=== PATIENT | male | born 1975 | race Caucasian/White ===

== ENCOUNTER 2020-12-02 17:39 | Emergency (ER) | payer MEDICAID, OTHER ==
[~2020-12-02] VITALS: Ht 177.8 cm; Wt 86.0 kg
[2020-12-02 18:39] LABS: BASOPHILS % 0.3 % (0.0-2.0); EOSINOPHILS % 0.3 % (0.0-5.0); HEMATOCRIT. 38.3 % (42.0-52.0); HEMOGLOBIN. 12.5 g/dL (14.0-18.0); LYMPHOCYTES % 15.7 % (20.0-50.0); MEAN CORPUSCULAR HEMOGLOBIN 29.5 pg (28.0-32.0); MEAN CORPUSCULAR VOLUME 90.2 fL (80.0-94.0); MEAN PLATELET VOLUME 8.2 fl (7.4-10.4); NEUTROPHILS % 80.7 % (40.0-76.0); PLATELET 259 x1000/uL (130-400); RED BLOOD CELL COUNT 4.24 mill/uL (4.7-6.1); RED CELL DISTRIBUTION WIDTH 14.4 % (11.6-14.6)
[2020-12-02 18:47] LABS: CHLORIDE 111 mEq/L (98-107)
[2020-12-02 18:55] LABS: CREATINE KINASE 170 IU/L (39-308)
[2020-12-02 19:26] LABS: ETHANOL BLOOD 317 mg/dL
[2020-12-02 23:08] LABS: CLARITY URINE CLEAR (CLEAR); COLOR URINE YELLOW (YELLOW); KETONES URINE NEGATIVE (NEGATIVE); LEUKOCYTE ESTERASE URINE NEGATIVE (NEGATIVE); NITRITE URINE NEGATIVE (NEGATIVE); OCCULT BLOOD URINE NEGATIVE (NEGATIVE); PROTEIN URINE NEGATIVE (NEGATIVE); SPECIFIC GRAVITY URINE 1.012 (1.005-1.030); UROBILINOGEN URINE 0.2 E.U./dL (0.2-1.0)
[2020-12-02 23:21] LABS: *AMPHETAMINES SCREEN URINE PRESUMTIVE POSITIVE (NEGATIVE); *BARBITURATES SCREEN URINE NEGATIVE (NEGATIVE); *BENZODIAZEPINES SCREEN URINE NEGATIVE (NEGATIVE); *COCAINE SCREEN URINE NEGATIVE (NEGATIVE); METHADONE URINE SCREEN NEGATIVE (NEGATIVE)
[2020-12-02 23:22] LABS: CANNABINOID URINE SCREEN NEGATIVE (NEGATIVE); OPIATES URINE SCREEN NEGATIVE (NEGATIVE); PHENCYCLIDINE URINE SCREEN NEGATIVE (NEGATIVE)
[2020-12-03 01:49] VITALS: BP 116/74
== END 2020-12-03 01:48 | disposition home or self-care (01) ==
LOC: ER 17:39
DX: R41.82 Altered mental status, unspecified (principal); F14.10 Cocaine abuse, uncomplicated; Z88.2 Allergy status to sulfonamides
CPT/HCPCS: 36415; 70450; 71045; 80053; 80305; 80307; 80320; 80329; 81003; 82140; 82550; 82962; 83605; 84443; 84484; 85025; 93005; 99285; Z7610; G0480

== ENCOUNTER 2020-12-03 02:38 | Emergency (ER) | payer MEDICAID ==
[~2020-12-03] VITALS: Ht 177.8 cm; Wt 90.0 kg
[2020-12-03] MEDS ORDERED: OLANZAPINE 10 MG/VIAL IM ONE ×2 (03:15→12:45)
[2020-12-03 03:37] LABS: BASOPHILS % 0.2 % (0.0-2.0); EOSINOPHILS % 1.4 % (0.0-5.0); HEMATOCRIT. 35.2 % (42.0-52.0); HEMOGLOBIN. 11.9 g/dL (14.0-18.0); LYMPHOCYTES % 38.3 % (20.0-50.0); MEAN CORPUSCULAR VOLUME 89.1 fL (80.0-94.0); MONOCYTES % 7.7 % (2.0-8.0); NEUTROPHILS % 52.4 % (40.0-76.0); PLATELET 251 x1000/uL (130-400); RED BLOOD CELL COUNT 3.96 mill/uL (4.7-6.1); RED CELL DISTRIBUTION WIDTH 14.1 % (11.6-14.6)
[2020-12-03 03:43] LABS: CHLORIDE 109 mEq/L (98-107)
[2020-12-03 03:47] LABS: ETHANOL BLOOD 102 mg/dL
[2020-12-03 06:24] LABS: CLARITY URINE CLEAR (CLEAR); COLOR URINE YELLOW (YELLOW); KETONES URINE TRACE (NEGATIVE); LEUKOCYTE ESTERASE URINE NEGATIVE (NEGATIVE); NITRITE URINE NEGATIVE (NEGATIVE); OCCULT BLOOD URINE TRACE (NEGATIVE); PROTEIN URINE NEGATIVE (NEGATIVE); SPECIFIC GRAVITY URINE 1.026 (1.005-1.030); UROBILINOGEN URINE 0.2 E.U./dL (0.2-1.0)
[2020-12-03 06:34] LABS: *BARBITURATES SCREEN URINE NEGATIVE (NEGATIVE); *BENZODIAZEPINES SCREEN URINE NEGATIVE (NEGATIVE)
[2020-12-03 06:35] LABS: *AMPHETAMINES SCREEN URINE PRESUMTIVE POSITIVE (NEGATIVE); *COCAINE SCREEN URINE NEGATIVE (NEGATIVE); CANNABINOID URINE SCREEN NEGATIVE (NEGATIVE); METHADONE URINE SCREEN NEGATIVE (NEGATIVE); OPIATES URINE SCREEN NEGATIVE (NEGATIVE); PHENCYCLIDINE URINE SCREEN NEGATIVE (NEGATIVE)
[2020-12-03] MEDS: HYDROXYZINE 25MG TABLET PO PRN ×3 (13:16→19:03)
[2020-12-03] MEDS ORDERED: ACETAMINOPHEN 325MG TABLET PO ONE (18:00)
[2020-12-04] MEDS ORDERED: OLANZAPINE 10 MG/VIAL IM ONE (08:30)
[2020-12-04] MEDS: HYDROXYZINE 25MG TABLET PO PRN ×2 (08:41→18:21)
[2020-12-05] MEDS ORDERED: ARIPIPRAZOLE 5MG TABLET PO SCH (08:00)
[2020-12-05] MEDS ORDERED: VENLAFAXINE HCL 50MG TABLET PO SCH (09:00)
[2020-12-05 10:13] VITALS: BP 131/74
[2020-12-05] MEDS ORDERED: MIRTAZAPINE 30MG TABLET PO SCH (21:00)
== END 2020-12-05 10:23 | disposition home or self-care (01) ==
LOC: ER 02:38
DX: R45.851 Suicidal ideations (principal); R44.0 Auditory hallucinations; R45.850 Homicidal ideations; F14.10 Cocaine abuse, uncomplicated; Z88.2 Allergy status to sulfonamides; Z20.822 Contact with and (suspected) exposure to COVID-19
CPT/HCPCS: 36415; 80053; 80305; 80320; 81003; 85025; 87426; 93005; 96372; 99285; J3490; Z7610; G0480

== ENCOUNTER 2020-12-28 21:01 | Emergency (ER) | payer MEDICAID ==
[~2020-12-28] VITALS: Ht 180.3 cm; Wt 73.0 kg
[2020-12-28 22:18] LABS: CLARITY URINE CLEAR (CLEAR); COLOR URINE DARK YELLOW (YELLOW); KETONES URINE TRACE (NEGATIVE); LEUKOCYTE ESTERASE URINE NEGATIVE (NEGATIVE); NITRITE URINE NEGATIVE (NEGATIVE); OCCULT BLOOD URINE NEGATIVE (NEGATIVE); PH URINE 5.5 (4.5-8.0); PROTEIN URINE 1+ (NEGATIVE); SPECIFIC GRAVITY URINE 1.027 (1.005-1.030); UROBILINOGEN URINE 0.2 E.U./dL (0.2-1.0)
[2020-12-28 22:31] LABS: *AMPHETAMINES SCREEN URINE PRESUMTIVE POSITIVE (NEGATIVE); *BARBITURATES SCREEN URINE NEGATIVE (NEGATIVE); *BENZODIAZEPINES SCREEN URINE NEGATIVE (NEGATIVE); *COCAINE SCREEN URINE NEGATIVE (NEGATIVE); CANNABINOID URINE SCREEN NEGATIVE (NEGATIVE)
[2020-12-28 22:32] LABS: METHADONE URINE SCREEN NEGATIVE (NEGATIVE); OPIATES URINE SCREEN NEGATIVE (NEGATIVE)
[2020-12-28 22:34] LABS: PHENCYCLIDINE URINE SCREEN NEGATIVE (NEGATIVE)
[2020-12-28 23:34] LABS: ETHANOL BLOOD 54 mg/dL
[2020-12-29 00:52] LABS: BASOPHILS % 0.3 % (0.0-2.0); HEMOGLOBIN. 12.9 g/dL (14.0-18.0); LYMPHOCYTES % 41.3 % (20.0-50.0); MEAN CORPUSCULAR HEMOGLOBIN 29.8 pg (28.0-32.0); MEAN CORPUSCULAR VOLUME 89.9 fL (80.0-94.0); MEAN PLATELET VOLUME 8.4 fl (7.4-10.4); MONOCYTES % 6.3 % (2.0-8.0); NEUTROPHILS % 49.1 % (40.0-76.0); PLATELET 221 x1000/uL (130-400); RED BLOOD CELL COUNT 4.34 mill/uL (4.7-6.1)
[2020-12-29 00:57] LABS: CHLORIDE 111 mEq/L (98-107)
[2020-12-29 02:50] VITALS: BP 129/82
== END 2020-12-29 08:16 | disposition home or self-care (01) ==
LOC: ER 21:01
DX: F19.10 Other psychoactive substance abuse, uncomplicated (principal); F17.200 Nicotine dependence, unspecified, uncomplicated; F15.10 Other stimulant abuse, uncomplicated; I10 Essential (primary) hypertension; Z13.9 Encounter for screening, unspecified; Z88.2 Allergy status to sulfonamides; Z59.0 Homelessness; Z86.59 Personal history of other mental and behavioral disorders
CPT/HCPCS: 36415; 71045; 80053; 80305; 80307; 80320; 80329; 81003; 82140; 83605; 84443; 85025; 99284; G0480

== ENCOUNTER 2021-01-20 16:48 | Emergency (ER) | payer MEDICAID ==
[~2021-01-20] VITALS: Ht 172.7 cm; Wt 88.0 kg
[2021-01-20] MEDS ORDERED: OLANZAPINE 10 MG/VIAL IM ONE (17:00)
[2021-01-20] MEDS ORDERED: LORAZEPAM 2MG/ML CPJ IM ONE (17:00)
[2021-01-20 17:30] LABS: BASOPHILS % 0.3 % (0.0-2.0); EOSINOPHILS % 2.8 % (0.0-5.0); HEMATOCRIT. 38.2 % (42.0-52.0); LYMPHOCYTES % 27.7 % (20.0-50.0); MEAN CORPUSCULAR HEMOGLOBIN 30.6 pg (28.0-32.0); MEAN CORPUSCULAR VOLUME 90.4 fL (80.0-94.0); MEAN PLATELET VOLUME 8.2 fl (7.4-10.4); MONOCYTES % 6.8 % (2.0-8.0); NEUTROPHILS % 62.4 % (40.0-76.0); PLATELET 272 x1000/uL (130-400); RED BLOOD CELL COUNT 4.23 mill/uL (4.7-6.1); RED CELL DISTRIBUTION WIDTH 13.9 % (11.6-14.6)
[2021-01-20 17:36] LABS: CHLORIDE 113 mEq/L (98-107)
[2021-01-20 17:39] LABS: ETHANOL BLOOD 200 mg/dL
[2021-01-20 23:10] LABS: CLARITY URINE CLEAR (CLEAR); COLOR URINE YELLOW (YELLOW); KETONES URINE NEGATIVE (NEGATIVE); LEUKOCYTE ESTERASE URINE NEGATIVE (NEGATIVE); NITRITE URINE NEGATIVE (NEGATIVE); OCCULT BLOOD URINE TRACE (NEGATIVE); PROTEIN URINE NEGATIVE (NEGATIVE); SPECIFIC GRAVITY URINE 1.019 (1.005-1.030)
[2021-01-20 23:30] LABS: *AMPHETAMINES SCREEN URINE NEGATIVE (NEGATIVE); *BARBITURATES SCREEN URINE NEGATIVE (NEGATIVE); *BENZODIAZEPINES SCREEN URINE NEGATIVE (NEGATIVE); *COCAINE SCREEN URINE NEGATIVE (NEGATIVE); METHADONE URINE SCREEN NEGATIVE (NEGATIVE); OPIATES URINE SCREEN NEGATIVE (NEGATIVE)
[2021-01-20 23:31] LABS: CANNABINOID URINE SCREEN NEGATIVE (NEGATIVE); PHENCYCLIDINE URINE SCREEN NEGATIVE (NEGATIVE)
[2021-01-21] MEDS ORDERED: QUETIAPINE FUMARATE 50MG TABLET PO SCH
[2021-01-21] MEDS ORDERED: LORAZEPAM 2MG/ML CPJ IM ONE (01:00)
[2021-01-21 05:00] VITALS: BP 121/69
== END 2021-01-21 05:20 | disposition home or self-care (01) ==
LOC: ER 16:48
DX: S62.611A Displaced fracture of proximal phalanx of left index finger, initial encounter for closed fracture (principal); S62.603A Fracture of unspecified phalanx of left middle finger, initial encounter for closed fracture; F10.129 Alcohol abuse with intoxication, unspecified; F31.9 Bipolar disorder, unspecified; I10 Essential (primary) hypertension; F20.9 Schizophrenia, unspecified; Z88.2 Allergy status to sulfonamides; F15.10 Other stimulant abuse, uncomplicated; R45.851 Suicidal ideations; W26.8XXA Contact with other sharp object(s), not elsewhere classified, initial encounter; Y93.89 Activity, other specified; Y92.89 Other specified places as the place of occurrence of the external cause; Y99.8 Other external cause status; Z20.822 Contact with and (suspected) exposure to COVID-19
CPT/HCPCS: 36415; 73130; 80053; 80305; 80307; 80320; 80329; 81003; 85025; 87426; 96372; 99285; J2060; J3490; Z7610; G0480

== ENCOUNTER 2021-02-09 04:55 | Emergency (ER) | payer MEDICAID ==
[~2021-02-09] VITALS: Ht 180.3 cm; Wt 82.0 kg
[2021-02-09 05:52] LABS: BASOPHILS % 0.3 % (0.0-2.0); EOSINOPHILS % 2.4 % (0.0-5.0); HEMATOCRIT. 40.8 % (42.0-52.0); HEMOGLOBIN. 13.4 g/dL (14.0-18.0); LYMPHOCYTES % 42.9 % (20.0-50.0); MEAN CORPUSCULAR HEMOGLOBIN 29.4 pg (28.0-32.0); MEAN CORPUSCULAR VOLUME 89.4 fL (80.0-94.0); MEAN PLATELET VOLUME 8.7 fl (7.4-10.4); NEUTROPHILS % 42.4 % (40.0-76.0); PLATELET 191 x1000/uL (130-400); RED BLOOD CELL COUNT 4.56 mill/uL (4.7-6.1); RED CELL DISTRIBUTION WIDTH 13.9 % (11.6-14.6)
[2021-02-09 06:00] LABS: CHLORIDE 111 mEq/L (98-107)
[2021-02-09 06:04] LABS: ETHANOL BLOOD 28 mg/dL
[2021-02-09] MEDS ORDERED: IBUPROFEN 600MG TABLET PO ONE (07:00)
[2021-02-09 08:51] LABS: CLARITY URINE CLOUDY (CLEAR); COLOR URINE YELLOW (YELLOW); KETONES URINE 1+ (NEGATIVE); LEUKOCYTE ESTERASE URINE 1+ (NEGATIVE); NITRITE URINE NEGATIVE (NEGATIVE); OCCULT BLOOD URINE NEGATIVE (NEGATIVE); PROTEIN URINE NEGATIVE (NEGATIVE)
[2021-02-09] MEDS ORDERED: ARIPIPRAZOLE 5MG TABLET PO SCH (09:00)
[2021-02-09 09:05] LABS: *BENZODIAZEPINES SCREEN URINE NEGATIVE (NEGATIVE); *COCAINE SCREEN URINE NEGATIVE (NEGATIVE); METHADONE URINE SCREEN NEGATIVE (NEGATIVE); OPIATES URINE SCREEN NEGATIVE (NEGATIVE); PHENCYCLIDINE URINE SCREEN NEGATIVE (NEGATIVE)
[2021-02-09 09:06] LABS: *BARBITURATES SCREEN URINE NEGATIVE (NEGATIVE); CANNABINOID URINE SCREEN NEGATIVE (NEGATIVE)
[2021-02-09 09:15] LABS: *AMPHETAMINES SCREEN URINE PRESUMTIVE POSITIVE (NEGATIVE)
[2021-02-09] MEDS: BUSPIRONE HCL 10MG TABLET PO SCH ×2 (09:57→19:45)
[2021-02-09] MEDS ORDERED: LORAZEPAM 1MG TABLET PO NR (15:30)
[2021-02-09] MEDS ORDERED: MIRTAZAPINE 15MG TABLET PO SCH (21:00)
[2021-02-10 07:05] VITALS: BP 131/74
== END 2021-02-10 10:00 | disposition home or self-care (01) ==
LOC: ER 04:55
DX: F23 Brief psychotic disorder (principal); R45.851 Suicidal ideations; F15.10 Other stimulant abuse, uncomplicated; I10 Essential (primary) hypertension; F41.9 Anxiety disorder, unspecified; Z76.5 Malingerer [conscious simulation]; Z20.822 Contact with and (suspected) exposure to COVID-19; Z87.828 Personal history of other (healed) physical injury and trauma; Z98.890 Other specified postprocedural states; Z88.2 Allergy status to sulfonamides; Z75.1 Person awaiting admission to adequate facility elsewhere
CPT/HCPCS: 36415; 73130; 80053; 80305; 80307; 80320; 80329; 81003; 85025; 87426; 99285; G0480

== ENCOUNTER 2021-02-12 20:21 | Emergency (ER) | payer MEDICAID ==
[~2021-02-12] VITALS: Ht 172.7 cm; Wt 82.0 kg
[2021-02-12 20:23] VITALS: BP 130/100
== END 2021-02-12 21:53 | disposition left against medical advice (07) ==
LOC: ER 20:21
DX: Z53.21 Procedure and treatment not carried out due to patient leaving prior to being seen by health care provider (principal); R07.89 Other chest pain; R45.1 Restlessness and agitation; F10.129 Alcohol abuse with intoxication, unspecified; Y90.9 Presence of alcohol in blood, level not specified; F12.90 Cannabis use, unspecified, uncomplicated

== ENCOUNTER 2021-04-26 13:53 | Emergency (ER) | payer MEDICAID, OTHER ==
[~2021-04-26] VITALS: Ht 175.3 cm; Wt 84.0 kg
[2021-04-26] MEDS ORDERED: NITROGLYCERIN 0.4MG TABLET SL SL ONE (15:45)
[2021-04-26 15:56] LABS: BASOPHILS % 0.2 % (0.0-2.0); EOSINOPHILS % 4.6 % (0.0-5.0); HEMATOCRIT. 37.8 % (42.0-52.0); HEMOGLOBIN. 12.8 g/dL (14.0-18.0); LYMPHOCYTES % 27.6 % (20.0-50.0); MEAN CORPUSCULAR HEMOGLOBIN 30.2 pg (28.0-32.0); MEAN CORPUSCULAR VOLUME 88.9 fL (80.0-94.0); MEAN PLATELET VOLUME 8.2 fl (7.4-10.4); MONOCYTES % 7.6 % (2.0-8.0); PLATELET 208 x1000/uL (130-400); RED BLOOD CELL COUNT 4.24 mill/uL (4.7-6.1); RED CELL DISTRIBUTION WIDTH 15.4 % (11.6-14.6)
[2021-04-26 16:00] LABS: CHLORIDE 106 mEq/L (98-107)
[2021-04-26 18:53] VITALS: BP 128/74
== END 2021-04-26 18:56 | disposition home or self-care (01) ==
LOC: ER 13:53
DX: R07.89 Other chest pain (principal); I10 Essential (primary) hypertension; I25.2 Old myocardial infarction; F15.10 Other stimulant abuse, uncomplicated; F12.10 Cannabis abuse, uncomplicated; Z88.2 Allergy status to sulfonamides
CPT/HCPCS: 36415; 71045; 80053; 83880; 84484; 85025; 93005; 99285

== ENCOUNTER 2022-09-11 11:22 | Emergency (ER) | payer MEDICAID, OTHER ==
[~2022-09-11] VITALS: Ht 177.8 cm; Wt 84.0 kg
[2022-09-11] MEDS ORDERED: SODIUM CHLORIDE 0.9% 1,000 ML IV ONE (11:45)
[2022-09-11 13:05] LABS: BASOPHILS % 0.7 % (0.0-2.0); EOSINOPHILS % 2.5 % (0.0-5.0); HEMATOCRIT. 39.6 % (42.0-52.0); HEMOGLOBIN. 13.3 g/dL (14.0-18.0); MEAN CORPUSCULAR HEMOGLOBIN 30.8 pg (28.0-32.0); MEAN CORPUSCULAR VOLUME 91.5 fL (80.0-94.0); MEAN PLATELET VOLUME 8.3 fl (7.4-10.4); MONOCYTES % 8.9 % (2.0-8.0); NEUTROPHILS % 60.9 % (40.0-76.0); PLATELET 212 x1000/uL (130-400); RED BLOOD CELL COUNT 4.33 mill/uL (4.7-6.1); RED CELL DISTRIBUTION WIDTH 14.1 % (11.6-14.6)
[2022-09-11 13:12] LABS: CHLORIDE 104 mEq/L (98-107)
[2022-09-11 13:20] LABS: ETHANOL BLOOD < 10 mg/dL
[2022-09-11 14:30] VITALS: BP 142/63
[2022-09-11] MEDS ORDERED: LORAZEPAM 0.5MG TABLET PO ONE (14:30)
== END 2022-09-11 15:21 | disposition home or self-care (01) ==
LOC: ER 11:22
DX: F15.129 Other stimulant abuse with intoxication, unspecified (principal); F12.10 Cannabis abuse, uncomplicated; F41.9 Anxiety disorder, unspecified; F20.9 Schizophrenia, unspecified; E78.00 Pure hypercholesterolemia, unspecified; I10 Essential (primary) hypertension; Z88.2 Allergy status to sulfonamides
CPT/HCPCS: 36415; 80053; 80307; 80320; 80329; 85025; 93005; 99284; J7030; G0480

== ENCOUNTER 2022-09-15 01:49 | Emergency (ER) | payer MEDICAID ==
[~2022-09-15] VITALS: Ht 175.3 cm; Wt 77.0 kg
[2022-09-15 01:53] VITALS: BP 121/70
[2022-09-15 02:37] LABS: CHLORIDE 109 mEq/L (98-107)
[2022-09-15 02:49] LABS: ETHANOL BLOOD 71 mg/dL
[2022-09-15 03:00] LABS: BASOPHILS % 0.2 % (0.0-2.0); EOSINOPHILS % 5.9 % (0.0-5.0); HEMATOCRIT. 39.8 % (42.0-52.0); HEMOGLOBIN. 13.4 g/dL (14.0-18.0); LYMPHOCYTES % 35.9 % (20.0-50.0); MEAN CORPUSCULAR VOLUME 92.5 fL (80.0-94.0); MEAN PLATELET VOLUME 8.3 fl (7.4-10.4); MONOCYTES % 8.5 % (2.0-8.0); NEUTROPHILS % 49.5 % (40.0-76.0); PLATELET 206 x1000/uL (130-400); RED BLOOD CELL COUNT 4.31 mill/uL (4.7-6.1); RED CELL DISTRIBUTION WIDTH 14.2 % (11.6-14.6)
== END 2022-09-15 04:10 | disposition left against medical advice (07) ==
LOC: ER 01:49
DX: F10.129 Alcohol abuse with intoxication, unspecified (principal); Y90.0 Blood alcohol level of less than 20 mg/100 ml; R45.851 Suicidal ideations; F32.9 Major depressive disorder, single episode, unspecified; E11.9 Type 2 diabetes mellitus without complications; I10 Essential (primary) hypertension; F20.9 Schizophrenia, unspecified; Z88.2 Allergy status to sulfonamides
CPT/HCPCS: 36415; 80053; 80307; 80320; 80329; 85025; 99283; G0480

== ENCOUNTER 2022-11-04 09:53 | Emergency (ER) | payer MEDICAID ==
[~2022-11-04] VITALS: Ht 180.3 cm; Wt 87.0 kg
[2022-11-04] MEDS ORDERED: IBUP-2029 MT (12:27)
[2022-11-04] MEDS ORDERED: HYDR-4001 MT ×2 (12:27)
[2022-11-04] MEDS ORDERED: HYDROCODONE/ACETAMINOPHEN 5/325MG TABLET PO ONE (12:30)
[2022-11-04 13:04] VITALS: BP 156/90
== END 2022-11-04 13:05 | disposition home or self-care (01) ==
LOC: ER 09:53
DX: S62.232A Other displaced fracture of base of first metacarpal bone, left hand, initial encounter for closed fracture (principal); Y04.0XXA Assault by unarmed brawl or fight, initial encounter; Y93.89 Activity, other specified; Y92.89 Other specified places as the place of occurrence of the external cause; I10 Essential (primary) hypertension; E11.9 Type 2 diabetes mellitus without complications
CPT/HCPCS: 29125; 73110; 73130; 99284